=== PATIENT | male | born 1955 | race Caucasian/White ===

== ENCOUNTER 2018-04-26 15:04 | Emergency (ER) | payer OTHER | END 2018-04-26 16:17 | disposition home or self-care (01) | LOC: FTE 15:04 | DX: K64.4 Residual hemorrhoidal skin tags (principal); F17.210 Nicotine dependence, cigarettes, uncomplicated; I10 Essential (primary) hypertension; E11.9 Type 2 diabetes mellitus without complications | CPT/HCPCS: 99284 ==

== ENCOUNTER 2018-07-24 14:52 | Emergency (ER) | payer OTHER | END 2018-07-24 19:22 | disposition home or self-care (01) | LOC: FTE 14:52 | DX: L72.9 Follicular cyst of the skin and subcutaneous tissue, unspecified (principal); I10 Essential (primary) hypertension; E11.9 Type 2 diabetes mellitus without complications; Z87.891 Personal history of nicotine dependence | CPT/HCPCS: 99283 ==